=== PATIENT | male | born 1955 | race Caucasian/White ===

== ENCOUNTER 2018-07-01 08:42 | Day surgery (SDC) | payer BC ==
[2018-06-30 13:45] LABS: BASOPHILS % (AUTO) 0.6 % (0-1); EOSINOPHILS # (AUTO) 0.2 X10'3 (0-0.9); EOSINOPHILS % (AUTO) 3.4 % (0-6); HEMATOCRIT 41.2 % (42.0-52.0); HEMOGLOBIN 13.6 g/dl (14.0-17.9); LYMPHOCYTES # (AUTO) 1.4 X10'3 (1.1-4.8); LYMPHOCYTES % (AUTO) 28.2 % (21-51); MEAN CORPUSCULAR HEMOGLOBIN 32.4 PG (27.0-31.0); MEAN CORPUSCULAR VOLUME 98.4 FL (78-98); MEAN PLATELET VOLUME 8.6 FL (7.4-10.4); MONOCYTES # (AUTO) 0.4 X10'3 (0-0.9); MONOCYTES % (AUTO) 7.6 % (2-12); NEUTROPHILS # (AUTO) 2.9 X10'3 (1.8-7.7); NEUTROPHILS % (AUTO) 60.2 % (42-75); PLATELET COUNT 219 X10'3 (140-440); RED BLOOD COUNT 4.19 X10'6 (4.70-6.10); RED CELL DISTRIBUTION WIDTH 13.4 % (11.5-14.5); WHITE BLOOD COUNT 4.9 X10'3 (4.5-11.0)
[2018-06-30 13:49] LABS: INR 1.1 INR; PARTIAL THROMBOPLASTIN TIME 29 SECONDS (22-32); PROTHROMBIN TIME 10.7 SECONDS (9.0-12.0)
[2018-06-30 14:02] LABS: ALBUMIN 3.6 G/DL (3.4-5.0); ANION GAP 7 (8-16); BLOOD UREA NITROGEN 10 MG/DL (7-18); BUN/CREATININE RATIO 12.5 (5.4-32.0); CALCIUM 9.3 MG/DL (8.5-10.1); CHLORIDE 103 MMOL/L (99-107); GLUCOSE 97 MG/DL (70-104); SODIUM 142 MMOL/L (135-145); TOTAL CARBON DIOXIDE 32.4 MMOL/L (24-32); eGFR > 90 ML/MIN
[2018-07-01] VITALS (10 sets, daily range): BP systolic 107–123; BP diastolic 64–83
[~2018-07-01] VITALS: Ht 180.3 cm; Wt 81.4 kg
[2018-07-01] MEDS ORDERED: diphenhydrAMINE 25mg capsule PO PRN (09:05)
[2018-07-01] MEDS ORDERED: normal saline 1000ml 1,000 ML IV SCH (09:05)
[2018-07-01] MEDS ORDERED: LORazepam 0.5 MG tablet PO PRN (09:05)
[2018-07-01] MEDS ORDERED: CHOL2000 PO (09:14)
[2018-07-01] MEDS ORDERED: OMEP20CA10 PO (09:14)
[2018-07-01] MEDS ORDERED: FLUT1BLS4 (09:14)
[2018-07-01] MEDS ORDERED: SPIR25TA5 PO (09:14)
[2018-07-01] MEDS ORDERED: ASPI-1265 PO (09:14)
[2018-07-01] MEDS ORDERED: FURO-150 PO (09:14)
[2018-07-01] MEDS ORDERED: MULT-38 PO (09:14)
[2018-07-01] MEDS ORDERED: LISI10TA4 PO (09:14)
[2018-07-01] MEDS ORDERED: CARV6.252 PO (09:14)
[2018-07-01] MEDS ORDERED: POTA-82 PO (09:14)
[2018-07-01] MEDS ORDERED: nitroGLYCERIN-Tridil 50MG/D5W 250 ML IV ONE (10:54)
[2018-07-01] MEDS ORDERED: midazolam 2 mg/2 ml injection ONE (10:55)
[2018-07-01] MEDS ORDERED: LIDOcaine 1% (10mg/ml)w/preservative injection 20ml MDV ONE (10:55)
[2018-07-01] MEDS ORDERED: heparin 1,000unit/ml 10ml vial 10 ML ONE (10:55)
[2018-07-01] MEDS ORDERED: iohexol 350MG/ML 100ml bottle IV ONE (10:55)
[2018-07-01] MEDS ORDERED: fentaNYL/PF 50MCG/1 ML 2ML syringe ONE (10:55)
[2018-07-01] MEDS ORDERED: iohexol 350 MG/ML 50ML vial IV ONE ×2 (10:55→11:37)
[2018-07-01 16:26] LABS: ISTAT Hct MIX 39 %PCV (42-52); ISTAT O2 SATURATION MIX VENOUS 70 % (60-80); ISTAT SOURCE MIX
[2018-07-01 16:26] LABS: ISTAT HGB ART 13.6 g/dl (14.0-18.0); ISTAT Hct ART 40 %PCV (42-52); ISTAT O2 SATURATION ARTERIAL 99 % (95-98); ISTAT SOURCE ART
== END 2018-07-01 18:15 | disposition home or self-care (01) ==
LOC: SSTAY O 08:42
PROVIDERS: ATTEND Internal Medicine Cardiovascular Disease
DX: I25.10 Atherosclerotic heart disease of native coronary artery without angina pectoris (principal); I42.0 Dilated cardiomyopathy; I45.2 Bifascicular block; J44.9 Chronic obstructive pulmonary disease, unspecified; E87.6 Hypokalemia; I11.0 Hypertensive heart disease with heart failure; I50.22 Chronic systolic (congestive) heart failure; K21.9 Gastro-esophageal reflux disease without esophagitis; Z72.89 Other problems related to lifestyle; Z85.828 Personal history of other malignant neoplasm of skin; Z87.891 Personal history of nicotine dependence; Z79.82 Long term (current) use of aspirin; Z79.899 Other long term (current) drug therapy; Z98.890 Other specified postprocedural states
CPT/HCPCS: 36415; 80048; 82803; 83880; 85014; 85025; 85610; 85730; 93005; 93460; 99152; 99153; A6257; C1760; J1644; J2001; J2250; J3010; J7030; Q0163; Q9967; A4620; C1769; J3490